=== PATIENT | female | born 1960 | race Caucasian/White ===

== ENCOUNTER 2020-01-31 17:25 | Outpatient (CLI) | payer BC, SELFPAY ==
[2020-01-31 18:50] LABS: Creatinine Urine, Random 147 mg/dL (28-217)
[2020-01-31 18:53] LABS: Basophils % 0.9 %; Eosinophils # 0.2 10^3/uL (0.0-0.8); Eosinophils % 4.7 %; Hematocrit 43.4 % (37.0-47.0); Lymphocytes # 1.6 10^3/uL (0.8-4.8); Lymphocytes % 37.1 %; Mean Corpuscular HGB Conc 32.3 g/dL (30.0-36.0); Mean Corpuscular Hemoglobin 29.7 pg (28.0-34.0); Mean Corpuscular Volume 92.1 fL (81-99); Mean Platelet Volume 10.5 fL (7.4-10.4); Monocytes # 0.3 10^3/uL (0.2-0.9); Monocytes % 6.1 %; Neutrophils # 2.1 10^3/uL (1.8-7.7); Neutrophils % 50.5 %; Nucleated Red Blood Cells % 0 %; Platelet Count 260 10^3/cmm (130-400); Red Blood Count 4.71 10^6/uL (4.1-5.3); Red Cell Distribution Width 12.2 % (12.1-15.1); White Blood Count 4.2 10^3/uL (4.0-10.0)
[2020-01-31 19:05] LABS: Microalbum Creatinine Ratio Ur 7 mg/dL (0-20); Microalbumin Random Urine 1 ug/dL (0-20)
[2020-01-31 19:24] LABS: Alanine Aminotransferase 29 U/L (0-33); Albumin Level 4.3 g/dL (3.5-5.2); Alkaline Phosphatase 72 IU/L (35-105); Aspartate Amino Transferase 20 U/L (0-32); Blood Urea Nitrogen 11 mg/dL (6-20); Carbon Dioxide 24 mmol/L (22-29); Chloride 102 mmol/L (98-107); Glomerular Filtration Rate 73.4 mL/min (90-130); Glucose 167 mg/dL (65-115); Osmolality Calculated 290 mOsm/kg (285-295); Sodium 140 mmol/L (136-145); Thyroid Stimulating Hormone 3.37 uIU/mL (0.27-4.20); Total Bilirubin 0.6 mg/dL (0.15-1.2); Total Protein 6.3 g/dL (6.6-8.7)
== END 2020-01-31 17:26 | disposition home or self-care (01) ==
LOC: LAB 17:29
PROVIDERS: PCP Family Medicine; Visit Provider Nurse Practitioner Family
DX: I10 Essential (primary) hypertension (principal)
CPT/HCPCS: 80053; 82044; 84443; 85025

== ENCOUNTER 2020-02-04 15:48 | Outpatient (CLI) | payer BC, SELFPAY ==
[2020-02-04 17:02] LABS: Chol HDL Ratio 4.17 mg/dL (0.0-4.40); Cholesterol 200 mg/dL (0-200); Glucose 128 mg/dL (65-115); HDL Cholesterol 48 mg/dL (60-100); LDL Cholesterol Calculated 122 mg/dL (50-129); LDL HDL Ratio 2.54 RATIO (0.00-3.22); Triglycerides 151 mg/dL (0-150)
[2020-02-04 18:36] LABS: Estmated Average Glucose 111; Hemoglobin A1C 5.5 % (4.0-6.0)
== END 2020-02-04 15:49 | disposition home or self-care (01) ==
LOC: LAB 15:50
PROVIDERS: PCP Family Medicine; Visit Provider Nurse Practitioner Family
DX: I10 Essential (primary) hypertension (principal)
CPT/HCPCS: 80061; 82947; 83036

== ENCOUNTER 2023-04-13 07:27 | Outpatient (CLI) | payer OTHER, SELFPAY ==
--- NOTE | 2023-04-13 07:39 | CT_ITS ---
WS: [id number] CT NECK TECHNIQUE: Contrast-enhanced CT of the neck with coronal and sagittal reformatted images. CLINICAL INFORMATION: NECK MASS COMPARISON: None. DLP: 170.[address] scans at [facility] use at least one of these dose optimization techniques: automated e xposure control; mA and/or kV adjustment per patient size (includes targeted exams where dose is matc hed to clinical indication); or iterative reconstruction. FINDINGS: Palpable marker overlying the RIGHT parotid gland. No abnormalities of the underlying RIGHT parotid g land. Asymmetric contrast enhancement involving the RIGHT submandibular gland with a small amount of surrounding induration and edema. Obstructing calculus in the distal RIGHT submandibular duct measuri ng 4 mm compatible with sialoadenitis. Mild intraductal dilatation RIGHT submandibular gland. No evid ence of drainable abscess or fluid collection. Slight induration in the adjacent RIGHT platysma. Paranasal sinuses are well aerated. Mastoid air cells are well aerated. Normal posterior nasopharynx. Normal parapharyngeal fat. Parotid glands are normal. Normal posterior fossa. Normal posterior nasop harynx. Normal parapharyngeal fat. Retropharyngeal course of both cervical ICAs. No evidence of supra glottic or glottic mass. Multinodular thyroid worse on the LEFT. This could follow-up with ultrasound . Mild mass effect on the trachea. Azygos fissure in the RIGHT upper lobe. Mild spondylitic changes c ervical spine. No cervical lymphadenopathy. IMPRESSION: 1. RIGHT submandibular sialadenitis with obstructing distal RIGHT submandibular duct calculus measur ing 4 mm. Small amount of surrounding induration and inflammatory changes. 2. No cervical lymphadenopathy. 3. Multinodular thyroid worse in the LEFT. This can be further evaluated with ultrasound.
[2023-04-13] MEDS: iohexol 350 mg/mL 500 mL Btl (per mL) IV (07:54)
== END 2023-04-13 07:28 | disposition home or self-care (01) ==
PROVIDERS: PCP Family Medicine; Visit Provider Nurse Practitioner Family
DX: R22.1 Localized swelling, mass and lump, neck (principal); K11.20 Sialoadenitis, unspecified; K11.5 Sialolithiasis; E04.2 Nontoxic multinodular goiter
CPT/HCPCS: 70491; Q9967

== ENCOUNTER 2023-05-03 10:35 | Outpatient (CLI) | payer OTHER, SELFPAY ==
--- NOTE | 2023-05-03 10:44 | US_ITS ---
WS: [id number] THYROID ULTRASOUND HISTORY: MULTIPLE NODULES FOUND ON CT COMPARISON: Neck CT 04/13/2023 Right lobe: 1.4 cm x 1.2 cm x 3.0 cm (w x ap x l). Volume: 2.4 cm3. Normal sized gland. There are a few very small nodules within the thyroid. These may be small colloid cysts. Left lobe: 3.0 cm x 1.5 cm x 4.3 cm (w x ap x l). Volume: 10.1 cm3. Enlarged heterogeneous thyroid. The entire LEFT thyroid is mildly hypoechoic with scattered areas of cysts. These are probably colloid cysts. Isthmus: 0.2 cm. IMPRESSION: 1. Enlarged heterogeneous entire LEFT thyroid. May be a goiter. This can be reevaluated in 6 months b y ultrasound. If there is any increase in size fine-needle aspiration may be necessary. 2. Benign colloid cysts RIGHT thyroid.
== END 2023-05-03 10:36 | disposition home or self-care (01) ==
PROVIDERS: PCP Family Medicine; Visit Provider Nurse Practitioner Family
DX: E04.2 Nontoxic multinodular goiter (principal)
CPT/HCPCS: 76536